=== PATIENT | male | born 1980 | race Two or more races ===

== ENCOUNTER 2017-10-11 23:19 | Emergency (ER) | payer SELFPAY ==
[2017-10-11 23:25] VITALS: BP 138/90; PULSE 90; RESP 16; TEMP 98.6; O2SAT 98
--- NOTE | 2017-10-12 00:38 | ED PDOC ---
HPI: Psych/Substance Abuse Time Seen by Provider: 10/11/17 23:40 Chief Complaint (Nursing): Psychiatric Evaluation Chief Complaint (Provider): ams History Per: EMS Additional Complaint(s): 37 y/o male brought in by EMS for evaluation. As per EMS, patient was acting aggressive in the local [facility]. Patient awake upon arrival, refusing to give name or answer questions. Does not make eye contact Past Medical History Reviewed: Historical Data, Nursing Documentation, Vital Signs Vital Signs: Last Vital Signs Temp 98.6 F 10/11/17 23:21 Pulse 90 10/11/17 23:21 Resp 16 10/11/17 23:21 BP 138/90 10/11/17 23:21 Pulse Ox 98 10/11/17 23:21 - Surgical History Surgical History: No Surg Hx - Family History Family History: States: No Known Family Hx - Allergies Allergies/Adverse Reactions: Allergies Allergy/AdvReac Type Severity Reaction Status Date / Time Unobtainable Allergy Verified 10/11/17 23:21 Review of Systems Review Of Systems: ROS cannot be obtained secondary to pt's inabilty to answer questions. Physical Exam - Reviewed Nursing Documentation Reviewed: Yes Vital Signs Reviewed: Yes - Physical Exam Appears: Positive for: Well, Non-toxic, No Acute Distress Head Exam: Positive for: ATRAUMATIC, NORMAL INSPECTION, NORMOCEPHALIC Skin: Positive for: Normal Color Eye Exam: Positive for: Normal appearance ENT: Positive for: Normal ENT Inspection Cardiovascular/Chest: Positive for: Regular Rate, Rhythm Respiratory: Positive for: Normal Breath Sounds Gastrointestinal/Abdominal: Positive for: Normal Exam Back: Positive for: Normal Inspection Extremity: Positive for: Normal ROM Neurologic/Psych: Positive for: Alert (awake) - Laboratory Results Result Diagrams: 10/12/17 01:44 10/12/17 01:44 - ECG O2 Sat by Pulse Oximetry: 98 - Progress ED Course And Treament: labs drug paraphernalia found in patient belongings during property list/check 2:00 Patient sleeping; no distress 3:30 Patient sleeping; no distress 5:00 Patient sleeping; upon awakening, when asked [place] Disposition - Clinical Impression Clinical Impression: Bizarre behavior - Disposition Disposition Time: 06:01 Condition: STABLE Forms: C-Note (Serbian) Patient Signed Over To: Yousif Moran Handoff Comments: pending crisis eval
[2017-10-12 01:52] LABS: BASO % 0.4 % (0.0-2.0); EOS # 0.1 K/uL (0.0-0.7); EOS % 1.5 % (0.0-4.0); HEMOGLOBIN 12.9 g/dL (12.0-18.0); LYMPH % 37.3 % (20.0-40.0); MEAN CELL VOLUME 83.5 fl (80.0-94.0); MEAN CORPUSCULAR HEMOGLOBIN 27.3 pg (27.0-31.0); MEAN CORPUSCULAR HGB CONC 32.7 g/dL (33.0-37.0); MEAN PLATELET VOLUME 7.6 fl (7.2-11.7); MONO # 1.2 K/uL (0.0-0.8); MONO % 15.3 % (0.0-10.0); NEUT # 3.6 K/uL (1.8-7.0); NEUT % 45.5 % (50.0-75.0); NRBC % 0.1 % (0.0-0.0); RBC 4.75 Mil/uL (4.40-5.90); RED CELL DISTRIBUTION WIDTH 13.8 % (11.5-14.5)
[2017-10-12 02:06] LABS: ALBUMIN 3.8 g/dL (3.5-5.0); ALT/SGPT 49 U/L (21-72); AST/SGOT 63 U/L (17-59); BLOOD UREA NITROGEN 13 mg/dl (9-20); CALCIUM 8.9 mg/dL (8.4-10.2); GFR NON-AFRICAN AMERICAN > 60
== END 2017-10-12 07:10 | disposition home or self-care (01) ==
LOC: MERGE 23:19 → H.ER 23:19
DX: F91.9 Conduct disorder, unspecified (principal); Z00.8 Encounter for other general examination
CPT/HCPCS: 80053; 85025; G0480